=== PATIENT | female | born 1990 | race African-American/Black ===

== ENCOUNTER 2024-06-12 00:23 | Emergency (ER) | payer SELFPAY ==
[~2024-06-12] VITALS: Ht 165.1 cm; Wt 63.0 kg
[2024-06-12 00:43] VITALS: O2SAT 100
[2024-06-12 02:09] LABS: BASOPHILS % 1.1 % (0.0-2.0); EOSINOPHILS % 1.2 % (0.0-5.0); HEMATOCRIT. 36.1 % (36.0-48.0); HEMOGLOBIN. 11.5 g/dL (12.0-16.0); LYMPHOCYTES % 33.5 % (20.0-50.0); MEAN CORPUSCULAR HEMOGLOBIN 29.2 pg (28.0-32.0); MEAN CORPUSCULAR VOLUME 91.1 fL (81.0-99.0); MEAN PLATELET VOLUME 8.4 fl (7.4-10.4); MONOCYTES % 7.4 % (2.0-8.0); NEUTROPHILS % 56.8 % (40.0-76.0); PLATELET 330 x1000/uL (130-400); RED BLOOD CELL COUNT 3.96 mill/uL (4.2-5.4); RED CELL DISTRIBUTION WIDTH 16.3 % (11.6-14.6); WHITE BLOOD COUNT 10.5 x1000/uL (4.5-11.0)
[2024-06-12 02:14] LABS: CHLORIDE 105 mEq/L (98-107); POTASSIUM 3.6 mEq/L (3.5-5.1); SODIUM 138 mEq/L (136-145)
[2024-06-12 02:15] LABS: CALCIUM 9.1 mg/dL (8.7-10.4); CARBON DIOXIDE 28 mEq/L (21-32)
[2024-06-12 02:20] LABS: CREATININE 0.6 mg/dL (0.6-1.0); GLUCOSE 85 mg/dL (70-105); UREA NITROGEN BLOOD 10 mg/dL (9-23)
[2024-06-12 02:25] LABS: THYROID STIMULATING HORMONE 4.36 uIU/mL (0.55-4.78)
[2024-06-12 03:32] VITALS: BP 140/79; PULSE 77; RESP 18; TEMP 36.89184; O2SAT 100
== END 2024-06-12 03:33 | disposition home or self-care (01) ==
LOC: ER 00:23
DX: R42 Dizziness and giddiness (principal)
CPT/HCPCS: 36415; 71045; 80048; 84443; 85025; 99284